=== PATIENT | female | born 1990 | race American Indian/Alaskan Native ===

== ENCOUNTER 2020-03-23 11:03 | Emergency (ER) | payer SELFPAY ==
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
== END 2020-03-23 12:08 | disposition home or self-care (01) ==
LOC: JP.ED 11:03
DX: R53.1 Weakness (principal); R42 Dizziness and giddiness; F17.210 Nicotine dependence, cigarettes, uncomplicated; Z20.828 Contact with and (suspected) exposure to other viral communicable diseases
CPT/HCPCS: 99284; U0002

== ENCOUNTER 2020-12-30 19:04 | Emergency (ER) | payer SELFPAY ==
[2020-12-30] MEDS ORDERED: Sodium Chloride 0.9% 10 ML Syringe FLUSH PRN ×2 (19:07)
[2020-12-30] MEDS ORDERED: Haloperidol Lactate 5 MG/ML SDV ONE (19:10)
[2020-12-30] MEDS ORDERED: LORazepam 2 MG/ML SDV ONE (19:11)
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
[2020-12-30] MEDS ORDERED: Haloperidol Lactate 5 MG/ML SDV IM ONE (19:27)
[2020-12-30] MEDS ORDERED: LORazepam 2 MG/ML SDV IVPUSH ONE (19:27)
== END 2020-12-30 20:10 ==
LOC: JP.ED 19:04
DX: F10.120 Alcohol abuse with intoxication, uncomplicated (principal); F15.90 Other stimulant use, unspecified, uncomplicated; F12.90 Cannabis use, unspecified, uncomplicated; S91.312A Laceration without foreign body, left foot, initial encounter; Y90.7 Blood alcohol level of 200-239 mg/100 ml; X58.XXXA Exposure to other specified factors, initial encounter
CPT/HCPCS: 12001; 36415; 80053; 80305; 80307; 81001; 85025; 85610; 85730; 96372; 96374; 99284; J1630; J2060

== ENCOUNTER 2021-08-11 15:08 | Emergency (ER) | payer MEDICAID | END 2021-08-11 16:57 | disposition left against medical advice (07) | LOC: JP.ED 15:08 | DX: Z53.21 Procedure and treatment not carried out due to patient leaving prior to being seen by health care provider (principal) ==